=== PATIENT | male | born 1950 | race Caucasian/White ===

== ENCOUNTER 2022-06-15 13:16 | Emergency (ER) | payer OTHER ==
[2022-06-15] MEDS ORDERED: KETOROLAC TROMETHAMINE 30 MG/1 ML VIAL IM ONE (13:27)
[2022-06-15 13:30] VITALS: BP 156/76; PULSE 80; RESP 16; TEMP 98.2; BMI 25.4
[2022-06-15] MEDS ORDERED: KETOROLAC TROMETHAMINE 30 MG/1 ML VIAL ONE (14:03)
== END 2022-06-15 15:00 | disposition home or self-care (01) ==
LOC: FER 13:16
PROC: 3E0233Z Introduction of Anti-inflammatory into Muscle, Percutaneous Approach (ICD-10-PCS; principal; 2022-06-15)
PROC: 2W3DX1Z Immobilization of Left Lower Arm using Splint (ICD-10-PCS; 2022-06-15)
DX: S52.502A Unspecified fracture of the lower end of left radius, initial encounter for closed fracture (principal); S63.501A Unspecified sprain of right wrist, initial encounter; W17.89XA Other fall from one level to another, initial encounter
CPT/HCPCS: 73090-TC-LT-FY; 73090-TC-RT-FY; 73110-TC-LT-FY; 73110-TC-RT-FY; 73130-TC-LT-FY; 73130-TC-RT-FY; 99285-25